=== PATIENT | female | born 1935 | race Caucasian/White ===

== ENCOUNTER → 2019-03-22 09:25 | Outpatient (CLI) | payer MEDICARE, SELFPAY ==
--- NOTE | 2019-03-22 | DI.MRI.S_ITS ---
PROCEDURE: MR LUMBAR SPINE WO CON INDICATIONS: LUMBAR PAIN TECHNIQUE: Noncontrast sagittal T1 spin echo and T2 fast echo, sagittal STIR, axial T1 and T2 fast spin echo through the lumbar spine. In cases with scoliosis, additional coronal T2 fast spin echo may be performed. COMPARISON: None. FINDINGS: Image quality: Excellent. Alignment and Curvature: Mild levoconvex scoliotic curvature is noted. Mild grade 1 anterolisthesis is seen at T12-L1. There is minimal retrolisthesis seen at L2-L3, L3-L4, and L4-L5. Bone Marrow: Marrow is of normal overall signal. No acute vertebral body compression fractures. Spinal Cord: Conus medullaris terminates at the T12-L1 level. Visualized cord demonstrates normal signal and size. Paraspinous Soft Tissues: No paravertebral masses. T12-L1: At least moderate loss of disc height and disc signal can be seen. Bridging endplate osteophytes are seen. Moderate generalized disc bulge is seen. There is moderate right-sided and mild to moderate left-sided neural foraminal narrowing seen. [id number] central canal narrowing is seen. L1-L2: Moderate loss of disc height is seen. Loss of disc signal is seen. Moderate generalized disc bulge is seen. Bridging endplate osteophytes are seen. Moderate bilateral neural foraminal narrowing is seen, right worse than left. Moderate central canal narrowing is seen. L2-L3: Moderate loss of disc height is seen. Loss of disc signal is seen. Bridging endplate osteophytes are seen. At least moderate disc bulge is seen. Mild facet joint hypertrophy is seen. There is at least moderate left-sided and moderate to severe right-sided neural foraminal narrowing seen. A minimal degree of compression can be seen upon the exiting nerve roots. Mild central canal narrowing is seen. L3-L4: At least moderate loss of disc height and disc signal can be seen. Bridging endplate osteophytes are seen. At least moderate disc bulge is seen, which is eccentric to the right. Moderate facet hypertrophy is seen. There is moderate to severe bilateral neural foraminal narrowing seen, right worse than left. There is a degree of compression seen upon the exiting nerve roots. Moderate central canal narrowing is seen. L4-L5: Moderate loss of disc height is seen. Loss of disc signal is seen. At least moderate disc bulge is seen. There is moderate right-sided and moderate to severe left-sided facet hypertrophy seen. Moderate to severe bilateral neural narrowing is seen. There is a degree of compression seen upon the exiting nerve roots. Moderate central canal narrowing is seen. L5-S1: Moderate loss of disc height is seen. Loss of disc signal is seen. At least moderate disc bulge is seen. There is a mild central/right disc extrusion seen, with superior migration of disc material. There is at least moderate hypertrophy seen. Moderate to severe bilateral neural foraminal narrowing is seen, left worse than right. There is a degree of compression seen upon the exiting nerve roots. Mild to moderate central canal narrowing is seen. 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 At L5-S1, there is a central disc extrusion seen. Moderate to severe bilateral neural foraminal narrowing is seen at L3-L4, L4-L5, L5-S1, with moderate to severe right-sided neural foraminal narrowing at L2-L3. There is associated compression upon the exiting nerve roots. Moderate central canal narrowing is seen at L3-L4 and L4-L5. Dictated by: Darshan Marin M.D. on 03/22/2019 at 11:04 Approved by: Darshan Marin M.D. on 03/22/2019 at 11:11
== END ==
PROVIDERS: PCP Physician Assistant Medical; Visit Provider Physical Medicine & Rehabilitation Pain Medicine
DX: M54.5 Low back pain (principal); M47.816 Spondylosis without myelopathy or radiculopathy, lumbar region; M47.817 Spondylosis without myelopathy or radiculopathy, lumbosacral region; M48.061 Spinal stenosis, lumbar region without neurogenic claudication; M48.07 Spinal stenosis, lumbosacral region
CPT/HCPCS: 72148

== ENCOUNTER → 2019-08-14 13:41 | Outpatient (CLI) | payer MEDICARE, SELFPAY ==
[2019-08-15 05:56] LABS: COVID19 Sendout Not Detected (Not Detect)
== END ==
PROVIDERS: PCP Physician Assistant Medical; Visit Provider Physician Assistant
DX: Z01.818 Encounter for other preprocedural examination (principal)
CPT/HCPCS: 87635